=== PATIENT | female | born 2000 | race Caucasian/White ===

== ENCOUNTER 2021-08-14 10:32 | Emergency (ER) | payer BC ==
[~2021-08-14] VITALS: Ht 154.9 cm; Wt 59.1 kg
[2021-08-14 10:45] VITALS: BP 103/67; PULSE 72; TEMP 98.1
[2021-08-14 11:06] LABS: COLLECTION METHOD CLEAN CATCH
[2021-08-14 11:18] LABS: MUCOUS Present (NOT PRESENT); PH 6 (5-8); SQUAMOUS EPITHELIAL 0-2 /hpf (0-10); URINE APPEARANCE Hazy (CLEAR/HAZY); URINE BACTERIA Rare /hpf (NONE SEEN); URINE BILIRUBIN Negative (NEGATIVE); URINE BLOOD Negative (NEGATIVE); URINE COLOR Yellow (YELLOW); URINE GLUCOSE Negative (NEGATIVE); URINE KETONE Negative (NEGATIVE); URINE LEUKOCYTE ESTERASE Negative (NEGATIVE); URINE NITRATE Negative (NEGATIVE); URINE PROTEIN(semi-quant) Negative (NEGATIVE); URINE RBC 0-2 /hpf (0-2); URINE UROBILINOGEN Negative (NEGATIVE)
[2021-08-14 11:25] LABS: BASO % 0.6 % (0.0-2.0); EOS # 0.7 K/mm3 (0.0-0.7); EOS % 9.3 % (0.0-4.0); GRAN # 3.6 K/mm3 (1.4-6.5); GRAN % 50.5 % (42.2-75.2); HEMATOCRIT 37.1 % (35.0-45.0); HEMOGLOBIN 12.3 g/dl (12.0-15.0); LYMPH # 2.3 K/mm3 (1.2-3.4); LYMPH % 31.4 % (20.0-51.0); MEAN CELL VOLUME 84 fl (80.0-95.0); MEAN CORPUSCULAR HEMOGLOBIN 28 pg (26-32); MEAN CORPUSCULAR HGB CONC 33 g/dl (33.0-37.0); MONO # 0.6 K/mm3 (0.1-0.6); MONO % 7.9 % (1.7-9.3); PLATELET COUNT 215 K/mm3 (130-400); REDCELL DISTRIBUTION WIDTH-CV 12.1 % (11.5-14.5)
[2021-08-14 11:52] LABS: ALBUMIN 4.1 gm/dL (3.5-5.0); BILIRUBIN,TOTAL 0.3 mg/dL (0.2-1.2); C-REACTIVE PROTEIN 0.03 mg/dL (0.00-0.50); CALCIUM 9.3 mg/dL (8.4-10.2); CREATININE, serum 0.82 mg/dL (0.57-1.11); TOTAL PROTEIN 7.2 gm/dL (6.2-8.1)
[2021-08-14 12:19] LABS: POTASSIUM 4.3 mmol/L (3.5-4.5)
== END 2021-08-14 12:30 | disposition home or self-care (01) ==
LOC: COL.ER 10:32
PROVIDERS: Emergency Medicine; Nurse Practitioner
DX: R10.11 Right upper quadrant pain (principal); R10.13 Epigastric pain; Z28.310 Unvaccinated for COVID-19

== ENCOUNTER 2021-10-26 05:58 | Day surgery (SDC) | payer BC ==
[~2021-10-26] VITALS: Ht 154.9 cm; Wt 57.8 kg
[2021-10-26 07:45] VITALS: BP 97/62; PULSE 70; TEMP 97.1
--- NOTE | 2021-10-26 07:57 | NUR ---
0745 - PT arrives and was assisted ambulating from cart to chair 2:1; gait is unsteady. Monitors applied and vitals obtained; PT denies pain/nausea, warm blankets provided. Verbal report obtained. Visitor is present. Snack and drink provided. PT oriented to room and call león, within reach. Will monitor per intervals. Non-slip socks are on.
[2021-10-26 08:00] VITALS: BP 104/61; PULSE 68
--- NOTE | 2021-10-26 08:04 | NUR ---
0800 - VSS. PT expressed desire to be discharged. PT denies pain/nausea, NO vomiting. Visitor remains present. PT has finished snack and drink. has spoken w/ PT.
[2021-10-26 08:15] VITALS: BP 105/56; PULSE 63
--- NOTE | 2021-10-26 08:19 | NUR ---
0815 - VSS. IV discontinued. Catheter tip intact. Pressure bandage applied; no redness/swelling. DC instructions and educational material revewed w/ PT who verbalized understanding and signed the related paperwork. Questions answered to PT satisfaction. PT refused RN assistance changing into personal clothes; call león within reach and visitor is present.
[2021-10-26 08:21] VITALS: BP 111/72; PULSE 79; TEMP 98.4
--- NOTE | 2021-10-26 08:29 | NUR ---
0825 - PT dismissed from endo via wheelchair to the PT entrence by Negar LEGER. PT has DC packet and personal belongings and was transferred into the care of Maverick, who is driving private car.
== END 2021-10-26 08:30 | disposition home or self-care (01) ==
LOC: SDCO 05:58
DX: K29.50 Unspecified chronic gastritis without bleeding (principal); R10.84 Generalized abdominal pain; R14.0 Abdominal distension (gaseous); K59.00 Constipation, unspecified; R19.7 Diarrhea, unspecified; Q39.8 Other congenital malformations of esophagus; Z28.310 Unvaccinated for COVID-19; Z28.9 Immunization not carried out for unspecified reason
CPT/HCPCS: J2704; J7030